=== PATIENT | male | born 1985 | race Two or more races ===

== ENCOUNTER 2021-10-05 21:36 | Emergency (ER) | payer OTHER ==
[~2021-10-05] VITALS: Ht 175.3 cm; Wt 81.6 kg
[2021-10-05] MEDS ORDERED: MEDROLPACK PO (23:54)
== END 2021-10-06 01:02 | disposition home or self-care (01) ==
LOC: ER 21:36
DX: R09.81 Nasal congestion (principal); R05.9 Cough, unspecified